=== PATIENT | male | born 1950 | race Caucasian/White ===

== ENCOUNTER 2019-04-08 05:38 | Outpatient (CLI) | payer MEDICARE ==
[~2019-04-08] VITALS: Ht 182.9 cm; Wt 111.4 kg
[~2019-04-08 05:38] MED LIST: SIMV10TA3 PO
[2019-04-08] MEDS ORDERED: SIMV80TA21 PO (10:11)
[2019-04-08] MEDS ORDERED: LISI10TA2 PO (10:11)
== END 2019-04-08 10:12 | disposition home or self-care (01) ==
LOC: PREOP 05:38
PROVIDERS: ATTEND Specialist
DX: Z01.818 Encounter for other preprocedural examination (principal)

== ENCOUNTER 2019-04-10 06:26 | Day surgery (SDC) | payer MEDICARE ==
[~2019-04-10] VITALS: Ht 182.9 cm; Wt 111.4 kg
[~2019-04-10 06:26] MED LIST changes: +LISI10TA2 PO; +SIMV80TA21 PO
[2019-04-10 06:30] VITALS: BP 129/89
[2019-04-10] MEDS: TETRACAINE 0.5% OPHTH SOLN 4 ML BTL (SINGLE DOSE ONLY) OU PRN ×4 (06:44→07:08)
[2019-04-10] MEDS ORDERED: POVIDONE (BETADINE) OPHTH SOLN 5% 30 ML OP ONE (06:45)
[2019-04-10] MEDS ORDERED: TIMOLOL MALEATE 0.5% 5 ML (TIMOPTIC) BTL OU PRN (06:45)
[2019-04-10] MEDS ORDERED: LIDOCAINE PF 1% 2 ML AMP IR PRN (06:45)
[2019-04-10] MEDS ORDERED: MOXIFLOXACIN OPHTH SOLN 5 MG/ML 0.3 ML SYRINGE OP ONE (06:45)
[2019-04-10] MEDS: CYCLOPENTOLATE 1% (CYCLOGYL) 2 ML DROPS OP SCH ×3 (06:53→07:08)
[2019-04-10] MEDS: PHENYLEPHRINE 10% OPHTH (NEO-SYN) 5 ML BTL OU SCH ×3 (06:53→07:08)
--- NOTE | 2019-04-10 07:27 | Ophthalmologist Pre-Op Note ---
Pre-Operative Progress Note H&P Reviewed The H&P was reviewed, patient examined and no changes noted. Date H&P Reviewed: Apr 10, 2019 Time H&P Reviewed: 07:27 Pre-Op Dx Cataract, Right Eye CHRISTINA CHAN MD Apr 10, 2019 07:27 POS
[2019-04-10] MEDS ORDERED: MIDAZOLAM 2 MG/2 ML (VERSED) VIAL ONE (07:46)
--- NOTE | 2019-04-10 07:50 | Ophthalmology Operative Report ---
Cataract removal/placement IOL PREOPERATIVE DIAGNOSIS: Cataract Right Eye POSTOPERATIVE DIAGNOSIS: Cataract Right Eye PROCEDURE: Cataract removal and placement of posterior chamber implant, right eye SURGEON: Tomás Chan ANESTHESIA: Topical with sedation COMPLICATIONS: None ESTIMATED BLOOD LOSS: Minimal DESCRIPTION OF PROCEDURE: After proper informed consent was obtained, the patient, a 68 male, was taken to the Operating Room and the right eye was anesthetized with tetracaine. The right eye was then prepped and draped in the usual manner. A wire lid speculum was placed. A paracentesis was made at the left hand position. Preservative free lidocaine was injected into the anterior chamber followed by viscoelastic. A clear corneal incision was made in the temporal position. A capsulorrhexis was preformed and the central nuclear and cortical material were removed. The posterior capsule was polished and Mayank 17.5 AU00T0 IOL was placed into the capsular bag. The residual viscoelastic was aspirated and balanced saline solution was injected into the anterior chamber. Moxifloxacin was injected into the anterior chamber. The wound was checked and found to be water tight. The patient tolerated the procedure well without complications. TOMÁS CHAN MD Apr 10, 2019 07:50 POS
[2019-04-10 08:00] VITALS: BP 118/83
[2019-04-10] MEDS ORDERED: acetaZOLAMIDE ER 500 MG CAP (DIAMOX SEQUELS) PO ONE (08:00)
--- NOTE | 2019-04-10 11:43 | Anesthesia-General Post-Op ---
MAC Patient Condition Mental Status/LOC: Same as Preop Cardiovascular: Satisfactory Nausea/Vomiting: Absent Respiratory: Satisfactory Pain: Controlled Complications: Absent Post Op Complications Complications None Follow Up Care/Instructions Patient Instructions None needed. Anesthesiology Discharge Order Discharge Order Patient is doing well, no complaints, stable vital signs, no apparent adverse anesthesia problems. No complications reported per nursing. ESTELA LYNN CRNA Apr 10, 2019 11:43 POS
== END 2019-04-10 08:00 | disposition home or self-care (01) ==
LOC: SDC 06:26
PROVIDERS: ATTEND Specialist
DX: H25.11 Age-related nuclear cataract, right eye (principal); I10 Essential (primary) hypertension; E78.5 Hyperlipidemia, unspecified; Z90.89 Acquired absence of other organs; Z79.899 Other long term (current) drug therapy; Z80.3 Family history of malignant neoplasm of breast; Z80.0 Family history of malignant neoplasm of digestive organs

== ENCOUNTER 2019-05-20 05:29 | Outpatient (CLI) | payer MEDICARE ==
[~2019-05-20] VITALS: Ht 182.9 cm; Wt 111.4 kg
== END 2019-05-20 11:10 | disposition home or self-care (01) ==
LOC: PREOP 05:29
PROVIDERS: ATTEND Specialist
DX: Z01.818 Encounter for other preprocedural examination (principal)

== ENCOUNTER 2019-05-22 09:51 | Day surgery (SDC) | payer MEDICARE ==
[~2019-05-22] VITALS: Ht 182.9 cm; Wt 111.4 kg
[2019-05-22 10:05] VITALS: BP 120/86
[2019-05-22] MEDS: TETRACAINE 0.5% OPHTH SOLN 4 ML BTL (SINGLE DOSE ONLY) OU PRN ×4 (10:13→10:52)
[2019-05-22] MEDS ORDERED: LIDOCAINE PF 1% 2 ML VIAL IR PRN (10:15)
[2019-05-22] MEDS ORDERED: POVIDONE (BETADINE) OPHTH SOLN 5% 30 ML OP ONE (10:15)
[2019-05-22] MEDS ORDERED: TIMOLOL MALEATE 0.5% 5 ML (TIMOPTIC) BTL OU PRN (10:15)
[2019-05-22] MEDS ORDERED: MOXIFLOXACIN OPHTH SOLN 5 MG/ML 0.3 ML SYRINGE OP ONE (10:15)
[2019-05-22] MEDS: CYCLOPENTOLATE 1% (CYCLOGYL) 2 ML DROPS OP SCH ×3 (10:31→10:52)
[2019-05-22] MEDS: PHENYLEPHRINE 10% OPHTH (NEO-SYN) 5 ML BTL OU SCH ×3 (10:32→10:52)
--- NOTE | 2019-05-22 11:15 | Ophthalmologist Pre-Op Note ---
Pre-Operative Progress Note H&P Reviewed The H&P was reviewed, patient examined and no changes noted. Date H&P Reviewed: May 22, 2019 Time H&P Reviewed: 11:15 Pre-Op Dx Cataract, Left Eye CHRISTINA CHAN MD May 22, 2019 11:15
[2019-05-22] MEDS ORDERED: MIDAZOLAM 2 MG/2 ML (VERSED) VIAL ONE (11:16)
--- NOTE | 2019-05-22 11:44 | Ophthalmology Operative Report ---
Cataract removal/placement IOL PREOPERATIVE DIAGNOSIS: Cataract Left Eye POSTOPERATIVE DIAGNOSIS: Cataract Left Eye PROCEDURE: Cataract removal and placement of posterior chamber implant, left eye SURGEON: Tomás Chan ANESTHESIA: Topical with sedation COMPLICATIONS: None ESTIMATED BLOOD LOSS: Minimal DESCRIPTION OF PROCEDURE: After proper informed consent was obtained, the patient, a 68 male, was taken to the Operating Room and the left eye was anesthetized with tetracaine. The left eye was then prepped and draped in the usual manner. A wire lid speculum was placed. A paracentesis was made at the left hand position. Preservative free lidocaine was injected into the anterior chamber followed by viscoelastic. A clear corneal incision was made in the temporal position. A capsulorrhexis was preformed and the central nuclear and cortical material were removed. The posterior capsule was polished and an Mayank 18.5 AU00T0 was placed into the capsular bag. The residual viscoelastic was aspirated and balanced saline solution was injected into the anterior chamber. Moxifloxacin was injected into the anterior chamber. The wound was checked and found to be water tight. The patient tolerated the procedure well without complications. TOMÁS CHAN MD May 22, 2019 11:44
[2019-05-22 11:53] VITALS: BP 115/79
[2019-05-22] MEDS ORDERED: acetaZOLAMIDE ER 500 MG CAP (DIAMOX SEQUELS) PO ONE (12:00)
--- NOTE | 2019-05-22 15:13 | Anesthesia-General Post-Op ---
MAC Patient Condition Mental Status/LOC: Same as Preop Cardiovascular: Satisfactory Nausea/Vomiting: Absent Respiratory: Satisfactory Pain: Controlled Complications: Absent Post Op Complications Complications None Follow Up Care/Instructions Patient Instructions None needed. Anesthesiology Discharge Order Discharge Order Patient is doing well, no complaints, stable vital signs, no apparent adverse anesthesia problems. No complications reported per nursing. ISIS NOVAK CRNA May 22, 2019 15:12
== END 2019-05-22 11:53 | disposition home or self-care (01) ==
LOC: SDC 09:51
PROVIDERS: ATTEND Specialist
DX: H25.12 Age-related nuclear cataract, left eye (principal); I10 Essential (primary) hypertension; E78.5 Hyperlipidemia, unspecified; Z79.899 Other long term (current) drug therapy; Z90.89 Acquired absence of other organs; Z80.0 Family history of malignant neoplasm of digestive organs; Z80.3 Family history of malignant neoplasm of breast

== ENCOUNTER 2019-12-18 05:52 | Outpatient (RCR) | payer MEDICARE ==
[~2019-12-18] VITALS: Ht 182.9 cm; Wt 109.1 kg
== END 2019-12-18 12:06 | disposition home or self-care (01) ==
LOC: PREOP 05:52
PROVIDERS: ATTEND Internal Medicine
DX: Z01.818 Encounter for other preprocedural examination (principal)

== ENCOUNTER 2019-12-25 07:03 | Day surgery (SDC) | payer MEDICARE ==
--- NOTE | 2019-12-04 08:23 | HISTORY AND PHYSICAL ---
DATE OF SERVICE: 12/25/2019 HISTORY OF PRESENT ILLNESS: The patient is a 69-year-old white male I have seen for followup of hypertension and hyperlipidemia. He has a past history of colon polyps and also family history of colon cancer, father being the index case diagnosed at the age of 66. He is due for screening colon as well. He reports he has been feeling well. He has been playing golf on a regular basis, portion controlling and that is what he attributes weight loss was due to down 6 pounds from 6 months ago. He has had no chest discomfort, orthopnea, PND or pedal edema. He denies dyspnea on exertion, has had no bowel habit change, denying melena or bright red blood per rectum. PHYSICAL EXAMINATION: GENERAL: Revealed a white male, appeared to be in no acute distress. VITAL SIGNS: Weight 244 pounds, blood pressure 110/74. CHEST: Clear. CARDIOVASCULAR: Regular rate and rhythm without murmur, S3 or S4. ABDOMEN: Soft, supple without mass, organomegaly or tenderness. EXTREMITIES: Reveal no cyanosis, clubbing or edema. SKIN: Evaluation revealed no suspicious nevi. LABORATORY DATA: Blood tests were reviewed with the patient. Lipid panel was ideal with total cholesterol of 131, HDL 46, triglyceride level of 85 and LDL 68. Fasting sugar was mildly elevated at 110. The remainder of his basic metabolic panel is normal. ASSESSMENT AND PLAN: 1. The patient is set up for screening colonoscopy on 12/25/2019 with a family history for colon cancer, index case being his father diagnosed at age 66. 2. Hypertension, under good control. 3. Hyperlipidemia, under good control. 4. Insulin resistance. Discussed the importance of continued portion control and weight loss to reduce future risk for diabetes. We will see him back in 6 months. Job ID: [id number] DocumentID: [id number] Dictated Date: 11/25/2019 16:59:27 Technician Date: 11/25/2019 17:24:32 Dictated By: SUKHWINDER PERALES MD MTDCholo
[~2019-12-25] VITALS: Ht 182.9 cm; Wt 109.1 kg
[2019-12-25] VITALS (10 sets, daily range): BP systolic 112–159; BP diastolic 75–117
[2019-12-25] MEDS ORDERED: D5 LR IV SOLUTION 1,000 ML IV ONE (07:12)
[2019-12-25] MEDS ORDERED: D5 LR IV SOLUTION 1,000 ML IV STA (07:15)
[2019-12-25] MEDS ORDERED: MIDAZOLAM 5 MG/5 ML (VERSED) VIAL IV PRN (07:15)
[2019-12-25] MEDS ORDERED: fentaNYL INJECTION 100 MCG/2 ML AMP IVP ONE (07:15)
[2019-12-25] MEDS ORDERED: LIDOCAINE JELLY 2% 6 ML SYRINGE MM PRN (07:15)
[2019-12-25] MEDS ORDERED: MIDAZOLAM 5 MG/5 ML (VERSED) VIAL ONE (07:35)
[2019-12-25] MEDS ORDERED: fentaNYL INJECTION 100 MCG/2 ML AMP ONE (07:35)
[2019-12-25] MEDS ORDERED: LIDOCAINE JELLY 2% 6 ML SYRINGE ONE (07:35)
--- NOTE | 2019-12-25 09:34 | Pre-Op Note & Conscious Sedat ---
Pre-Operative Progress Note H&P Reviewed The H&P was reviewed, patient examined and no changes noted. Date H&P Reviewed: Dec 25, 2019 Time H&P Reviewed: 07:40 Conscious Sedation Pre-Proced ASA Score 2 For ASA 3 and 4: Consider anesthesia and medical clearance. Also, for patients with a history of failed moderate sedation consider anesthesia. Airway Lungs Heart ASA score ASA 1: a normal healthy patient ASA 2: a patient with a mild systemic disease (mid diabetes, controlled hypertension, obesity ASA 3: a patient with a severe systemic disease that limits activity (angina, COPD, prior Myocardial infarction) ASA 4: a patient with an incapacitating disease that is a constant threat to life (CHF, renal failure) ASA 5: a moribund patient not expected to survive 24 hrs. (ruptured aneurysm) ASA 6: a declared brain- patient whose organs are being harvested. For emergent operations, add the letter E after the classification Mallampati Classification Grade 2 Sedation Plan Analgesia, Amnesia, Plan communicated to team members, Discussed options with patient/fam, Discussed risks with patient/fam The patient is an appropriate candidate to undergo the planned procedure, sedation, and anesthesia. The patient immediately re-assessed prior to indication. SUKHWINDER PERALES MD Dec 25, 2019 09:34
--- NOTE | 2019-12-25 17:01 | OPERATIVE REPORT ---
DATE OF SERVICE: COLONOSCOPY SUMMARY INDICATION FOR THE PROCEDURE: Screening colonoscopy and family history for colon cancer. DESCRIPTION OF PROCEDURE: The patient was placed in the left lateral decubitus position. Prior to undergoing colonoscopy, a digital rectal evaluation was performed. Anal sphincter tone was normal and the perianal reflex was intact. Prostate is mild to moderately enlarged, anodular and nontender to digital inspection. No other abnormalities were noted on digital inspection of the anal canal or distal rectal vault. The colonoscope was then inserted into the rectum and then under direct visualization advanced to the cecum. The cecum was identified by identification of the ileocecal valve and cecal strap. Photographic documentation was obtained. Careful inspection was made as the colonoscope was withdrawn. The quality of prep was good. FINDINGS: There was no evidence for internal or external hemorrhoids and the rectum was unremarkable. Present in the mid and proximal sigmoid colon were moderate number of medium to large size diverticulum without evidence for diverticulitis. No other sigmoid or descending colonic abnormalities were appreciated. The splenic flexure was unremarkable. Several small diverticulum were noted in the transverse colon. In the proximal transverse colon was a diminutive polyp that was photographed and biopsied and ablated and submitted for histopathology. A small questionable polyp was also noted in the proximal sigmoid colon. It too was biopsied and ablated with no subsequent blood loss. Several ascending colonic diverticulum and cecal diverticulum were noted without evidence for diverticulitis. No other right-sided colonic abnormalities were appreciated. ASSESSMENT: Two diminutive polyps were removed today, one from the proximal sigmoid colon and the other from the proximal transverse colon. As long as there are no surprises on histopathology report considering family history, we will advocate repeat surveillance colonoscopy in 5 years. Moderate diverticular disease noted in the mid and proximal sigmoid colon and to a lesser extent transverse colon, ascending colon and cecum were noted without evidence for diverticulitis. Digital evaluation of the prostate was compatible with mild to moderate BPH. Job ID: [id number] DocumentID: [id number] Dictated Date: 12/25/2019 09:55:15 Collections Manager Date: 12/25/2019 17:01:15 Dictated By: SUKHWINDER PERALES MD
== END 2019-12-25 09:10 | disposition home or self-care (01) ==
LOC: ENDO 07:03
PROVIDERS: ATTEND Internal Medicine
DX: Z12.11 Encounter for screening for malignant neoplasm of colon (principal); D12.3 Benign neoplasm of transverse colon; D12.5 Benign neoplasm of sigmoid colon; K57.30 Diverticulosis of large intestine without perforation or abscess without bleeding; N40.0 Benign prostatic hyperplasia without lower urinary tract symptoms; I10 Essential (primary) hypertension; E78.5 Hyperlipidemia, unspecified; E88.81 Metabolic syndrome and other insulin resistance; Z80.0 Family history of malignant neoplasm of digestive organs; Z86.010 Personal history of colon polyps

== ENCOUNTER → 2022-10-08 | Outpatient (CLI) | payer MEDICARE ==
[~2022-10-08] MED LIST changes: -LISI10TA2 PO; +LISI10TA25 PO
== END ==
LOC: CARD 11:16
PROVIDERS: ATTEND Nurse Practitioner Family
DX: I49.9 Cardiac arrhythmia, unspecified (principal); R00.2 Palpitations
CPT/HCPCS: 93005

== ENCOUNTER 2022-10-16 11:44 | Emergency (ER) | payer MEDICARE ==
[~2022-10-16] VITALS: Ht 182.8 cm; Wt 111.5 kg
[~2022-10-16 11:44] MED LIST changes: -DILT120C82 PO
[2022-10-16 12:11] LABS: BASOPHILS % (AUTO) 1 % (0-10); EOSINOPHILS # (AUTO) 0.3 10^3/uL (0.0-0.3); EOSINOPHILS % (AUTO) 3 % (0-10); HEMATOCRIT 48 % (40-54); HEMOGLOBIN 16.1 g/dL (13.3-17.7); LYMPHOCYTES # (AUTO) 1.3 10^3/uL (1.0-4.0); LYMPHOCYTES % (AUTO) 17 % (12-44); MEAN CORPUSCULAR HEMOGLOBIN 29 pg (25-34); MEAN CORPUSCULAR HGB CONC 33 g/dL (32-36); MEAN CORPUSCULAR VOLUME 88 fL (80-99); MEAN PLATELET VOLUME 9.7 fL (9.0-12.2); MONOCYTES # (AUTO) 0.8 10^3/uL (0.0-1.0); MONOCYTES % (AUTO) 11 % (0-12); NEUTROPHILS # (AUTO) 5.1 10^3/uL (1.8-7.8); NEUTROPHILS % (AUTO) 67 % (42-75); PLATELET COUNT 321 10^3/uL (130-400); WHITE BLOOD COUNT 7.5 10^3/uL (4.3-11.0)
[2022-10-16 12:14] LABS: ALBUMIN 4.3 GM/DL (3.2-4.5); POTASSIUM 4.5 MMOL/L (3.6-5.0)
--- NOTE | 2022-10-16 12:14 | ED Cardiac General ---
History of Present Illness General Chief Complaint: Cardiac/General Problems Stated Complaint: AFIB W/ RVR | 115-145 Nursing Triage Note: PT AMB TO RM 5 FROM ECHO WITH C/O AFIB WITH RVR. PT DENIES CP OR ANY OTHER SX Source: patient Exam Limitations: no limitations History of Present Illness Date Seen by Provider: Oct 16, 2022 Time Seen by Provider: 11:49 Initial Comments 72-year-old male presents to the ER for A-fib. He reports that approximately 1 month ago he started noticing that his heart rate was elevated when he was checking his blood pressure. He states that occasionally he has palpitations at night. He states that he saw his primary last week who ordered an EKG which showed him to be in atrial fibrillation. He was started on Eliquis and Plavix, states he has been taking these for about 4 days. His primary ordered an echo due to his atrial fibrillation, he was getting the echo today, they sent him here due to him being in A-fib with an elevated heart rate. He denies any current palpitations, dizziness, chest pain, shortness of air. Other past medical history includes hypertension and hyperlipidemia. 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 Allergies and Home Medications Allergies Coded Allergies: No Known Drug Allergies (Unverified , 09/14/14) Patient Home Medication List Home Medication List Reviewed: Yes Diltiazem HCl (Cardizem Cd) 120 Mg Cap.er.24h, 120 MG PO DAILY Prescribed by: Shira Ivan on 10/16/22 1304 Lisinopril (Lisinopril) 10 Mg Tablet, 10 MG PO HS, (Reported) Entered as Reported by: CHRISSY GERMAN on 04/08/19 1011 Simvastatin (Simvastatin) 80 Mg Tablet, 80 MG PO HS, (Reported) Entered as Reported by: CHRISSY GERMAN on 04/08/19 1011 Review of Systems Review of Systems Constitutional: see HPI Past Wyegawl-Ogyrqv-Iqdxww Hx Patient Social History Tobacco Use?: No Substance use?: No Alcohol Use?: Yes Alcohol type: Beer Pt feels they are or have been: No Seasonal Allergies Seasonal Allergies: Yes Past Medical History Surgery/Hospitalization HX: HLD, AFIB Surgeries: Yes Tonsillectomy Respiratory: No Cardiac: Yes High Cholesterol, Hypertension Neurological: No Genitourinary: No Gastrointestinal: No Musculoskeletal: No Endocrine: No HEENT: No Cancer: No Psychosocial: No Integumentary: No Blood Disorders: No Family Medical History FH: colon cancer Physical Exam Vital Signs Vital Signs - First Documented 10/16/22 11:50 Temp 36.4 Pulse 113 Resp 13 B/P (MAP) 138/107 (117) Pulse Ox 95 O2 Delivery Room Air Capillary Refill : Less Than 3 Seconds Height, Weight, BMI Height: 6'1.00" Weight: 245lbs. oz. 111.820821sr; 33.00 BMI Method: General Appearance: No Apparent Distress, WD/WN Neck: Normal Inspection, Supple Respiratory: Lungs Clear, Normal Breath Sounds, No Accessory Muscle Use, No Respiratory Distress Cardiovascular: Irregularly Irregular Extremity: Normal Inspection, Normal Range of Motion Neurologic/Psychiatric: Alert, Normal Mood/Affect Skin: Normal Color, Warm/Dry Progress/Results/Core Measures Results/Orders Lab Results Laboratory Tests Test 10/16/22 11:55 Range/Units White Blood Count 7.5 4.3-11.0 10^3/uL Red Blood Count 5.47 4.30-5.52 10^6/uL Hemoglobin 16.1 13.3-17.7 g/dL Hematocrit 48 40-54 % Mean Corpuscular Volume 88 80-99 fL Mean Corpuscular Hemoglobin 29 25-34 pg Mean Corpuscular Hemoglobin Concent 33 32-36 g/dL Red Cell Distribution Width 13.3 10.0-14.5 % Platelet Count 321 130-400 10^3/uL Mean Platelet Volume 9.7 9.0-12.2 fL Immature Granulocyte % (Auto) 1 % Neutrophils (%) (Auto) 67 42-75 % Lymphocytes (%) (Auto) 17 12-44 % Monocytes (%) (Auto) 11 0-12 % Eosinophils (%) (Auto) 3 0-10 % Basophils (%) (Auto) 1 0-10 % Neutrophils # (Auto) 5.1 1.8-7.8 10^3/uL Lymphocytes # (Auto) 1.3 1.0-4.0 10^3/uL Monocytes # (Auto) 0.8 0.0-1.0 10^3/uL Eosinophils # (Auto) 0.3 0.0-0.3 10^3/uL Basophils # (Auto) 0.0 0.0-0.1 10^3/uL Immature Granulocyte # (Auto) 0.0 0.0-0.1 10^3/uL Prothrombin Time 14.5 12.2-14.7 SEC INR Comment 1.1 0.8-1.4 Activated Partial Thromboplast Time 31 24-35 SEC Sodium Level 139 135-145 MMOL/L Potassium Level 4.5 3.6-5.0 MMOL/L Chloride Level 107 98-107 MMOL/L Carbon Dioxide Level 24 21-32 MMOL/L Anion Gap 8 5-14 MMOL/L Blood Urea Nitrogen 16 7-18 MG/DL Creatinine 1.01 0.60-1.30 MG/DL Estimat Glomerular Filtration Rate 79 BUN/Creatinine Ratio 16 Glucose Level 127 H 70-105 MG/DL Calcium Level 9.8 8.5-10.1 MG/DL Corrected Calcium 9.6 8.5-10.1 MG/DL Magnesium Level 2.3 1.6-2.4 MG/DL Total Bilirubin 0.9 0.1-1.0 MG/DL Aspartate Amino Transf (AST/SGOT) 21 5-34 U/L Alanine Aminotransferase (ALT/SGPT) 34 0-55 U/L Alkaline Phosphatase 56 40-136 U/L Total Protein 6.9 6.4-8.2 GM/DL Albumin 4.3 3.2-4.5 GM/DL My Orders Orders - SHIRA IVAN APRN Ekg Tracing (10/16/22 11:49) Cbc With Automated Diff (10/16/22 12:03) Magnesium (10/16/22 12:03) Comprehensive Metabolic Panel (10/16/22 12:03) Protime With Inr (10/16/22 12:03) Partial Thromboplastin Time (10/16/22 12:03) O2 (10/16/22 12:03) Monitor-Rhythm Ecg Trace Only (10/16/22 12:03) Ed Iv/Invasive Line Start (10/16/22 12:03) Diltiazem Cd 24 Hr Capsule (Cardizem Cd (10/16/22 12:45) Medications Given in ED Current Medications Medications Dose Ordered Sig/Gem Route Start Time Stop Time Status Last Admin Dose Admin Diltiazem HCl 120 mg ONCE ONCE PO 10/16/22 12:45 10/16/22 12:46 DC 10/16/22 12:56 120 MG Vital Signs/I&O 10/16/22 10/16/22 11:50 13:15 Temp 36.4 36.4 Pulse 113 115 Resp 13 15 B/P (MAP) 138/107 (117) 122/94 Pulse Ox 95 96 O2 Delivery Room Air Room Air Blood Pressure Mean: 117 Progress Progress Note : Progress Note Patient seen and evaluated, resting comfortably in bed, no acute distress. Exam and symptoms, work-up initiated including CBC, CMP, magnesium, coags. 1231 Labs reviewed. CBC grossly normal. CMP grossly normal, glucose 127. Coags normal. Called and spoke with Dr. De La Rosa, cardiology. I informed him that I believe patient will be stable to go home, heart rate has remained mostly around 100. Occasionally jumps to 134, but only for a second. The range mostly stays between [address] De La Rosa is okay with patient going home as well. He would like patient started on Cardizem CD1 120 mg once daily. He wants patient to follow-up in the office. Results discussed with patient. Patient agreeable to discharge plan. Discharge instructions and return precautions provided. Initial ECG Impression Date: Oct 16, 2022 Initial ECG Impression Time: 11:52 Initial ECG Rate: 103 Initial ECG Rhythm: A Fib/Flutter Initial ECG Intervals: Normal Initial ECG Impression: Atrial Fibrillation Initial ECG Comparisson: Unchanged Departure Impression Primary Impression: Atrial fibrillation Qualified Codes: I48.11 - Longstanding persistent atrial fibrillation Disposition: 01 HOME, SELF-CARE Condition: Stable Departure-Patient Inst. Decision time for Depature: 13:02 Referrals: SUKHWINDER PERALES MD (PCP/Family) Primary Care Physician AMILCAR DE LA ROSA MD Patient Instructions: Atrial Fibrillation (DC) Add. Discharge Instructions: Take Cardizem 1 tablet daily as prescribed. Continue taking your home medications. Call Dr. De La Rosa's office today to schedule a follow-up appointment. Return for chest pain, shortness of air, dizziness, or any other new, concerning, or worsening symptoms. All discharge instructions reviewed with patient and/or family. Voiced u nderstanding. Scripts Diltiazem HCl (Cardizem Cd) 120 Mg Cap.er.24h 120 MG PO DAILY for 30 Days, #30 CAP 0 Refills Prov: SHIRA IVAN LUIS A 10/16/22 SHIRA IVAN APRN Oct 16, 2022 12:14
[2022-10-16 12:15] LABS: CALCIUM 9.8 MG/DL (8.5-10.1); INR 1.1 (0.8-1.4); PROTHROMBIN TIME PATIENT 14.5 SEC (12.2-14.7)
[2022-10-16 12:16] LABS: TOTAL PROTEIN 6.9 GM/DL (6.4-8.2)
[2022-10-16 12:18] LABS: BILIRUBIN,TOTAL 0.9 MG/DL (0.1-1.0)
[2022-10-16 12:20] LABS: CREATININE SERUM 1.01 MG/DL (0.60-1.30)
[2022-10-16 12:23] LABS: MAGNESIUM 2.3 MG/DL (1.6-2.4)
[2022-10-16] MEDS ORDERED: dilTIAZem120 MG (CARDIZEM CD) CAP PO ONE (12:45)
[2022-10-16] MEDS ORDERED: DILT120C82 PO (13:04)
[2022-10-16 13:15] VITALS: BP 122/94
== END 2022-10-16 13:15 | disposition home or self-care (01) ==
LOC: EDUNIT# 11:44 → ER 11:45
DX: I48.91 Unspecified atrial fibrillation (principal); Z79.02 Long term (current) use of antithrombotics/antiplatelets
CPT/HCPCS: 36415; 80053; 83735; 85025; 85610; 85730; 93005; 93041

== ENCOUNTER → 2022-10-16 | Outpatient (CLI) | payer MEDICARE ==
[~2022-10-16] MED LIST changes: +DILT120C82 PO
== END ==
LOC: CARD 10:55
PROVIDERS: ATTEND Nurse Practitioner Family
DX: I48.91 Unspecified atrial fibrillation (principal)

== ENCOUNTER → 2022-10-26 | Outpatient (CLI) | payer MEDICARE ==
[~2022-10-26] MED LIST changes: +DILT120C82 PO
== END ==
LOC: CARD 12:00
PROVIDERS: ATTEND Internal Medicine Cardiovascular Disease
DX: I10 Essential (primary) hypertension (principal); I25.10 Atherosclerotic heart disease of native coronary artery without angina pectoris
CPT/HCPCS: 93306

== ENCOUNTER → 2022-12-26 | Outpatient (CLI) | payer MEDICARE ==
[~2022-12-26] MED LIST changes: +CATHETER FLUSH 10 ML SYR IVP PRN
== END ==
LOC: CARD 12:30
PROVIDERS: ATTEND Internal Medicine Cardiovascular Disease
DX: I10 Essential (primary) hypertension (principal); I25.10 Atherosclerotic heart disease of native coronary artery without angina pectoris

== ENCOUNTER → 2023-01-02 | Outpatient (CLI) | payer MEDICARE ==
[~2023-01-02] VITALS: Ht 182 cm; Wt 111.0 kg
[~2023-01-02] MED LIST changes: +REGADENOSON 0.4 MG/5 ML SYR IV ONE; +meTOprolol INJECTION 5 MG/5 ML VIAL IV ONE; +meTOprolol INJECTION 5 MG/5 ML VIAL ONE
[2023-01-02 13:36] VITALS: BP 141/101
[2023-01-02 13:38] VITALS: BP 135/98
--- NOTE | 2023-01-02 15:50 | Cardiology Stress Test Report ---
Stress Test Report Date of Procedure/Referring: Date of Procedure: Jan 02, 2023 PCP Sukhwinder Perales MD Admitting Physician Admitting Physician: Attending Physician: Tasha De La Rosa MD Indications: atrial fib Baseline Heart Rate: 95 Baseline Blood Pressure: Blood Pressure Systolic: 135 Blood Pressure Diastolic: 98 Baseline Vitals Vital Signs Date Time Temp Pulse Resp B/P (MAP) Pulse Ox O2 Delivery O2 Flow Rate FiO2 01/02/23 13:36 90 17 141/101 (114) 98 Baseline EKG: Baseline EKG: a fib Summary After explaining the procedure to the patient, he signed a consent and then brought to the stress nuclear laboratory. Patient received 0.4 mg Lexiscan for stress test, ECG, heart rate and blood pressure were monitored continuously. Resting and stress dose of radio tracer were injected, imaging was acquired and reviewed in short axis, horizontal long axis and vertical long axis views. TID: 1.15 SSS: 4 SDS: 4 EF: 61 Patient tolerated Lexiscan well Baseline atrial fibrillation persisted during test Diaphragmatic attenuation with mild decrease uptake involving the inferior apical segment with mild reversibility most probably secondary to diaphragmatic attenuation, overall there is no significant ischemia or infarction noted on SPECT images Normal left ventricular size, ejection fraction 61%, gated images are unreliable due to underlying atrial fibrillation Copy Copies To 1: SUKHWINDER PERALES MD, BASHAR J MD Jan 02, 2023 15:50
== END ==
LOC: CARD 12:45
PROVIDERS: ATTEND Internal Medicine Cardiovascular Disease
DX: I10 Essential (primary) hypertension (principal); I25.10 Atherosclerotic heart disease of native coronary artery without angina pectoris
CPT/HCPCS: 78452; 93017; A9502

== ENCOUNTER 2023-01-16 07:17 | Day surgery (SDC) | payer MEDICARE ==
[2023-01-16] VITALS (7 sets, daily range): BP systolic 117–136; BP diastolic 76–106
[~2023-01-16] VITALS: Ht 182.9 cm; Wt 115.4 kg
[~2023-01-16 07:17] MED LIST changes: -CATHETER FLUSH 10 ML SYR IVP PRN; -REGADENOSON 0.4 MG/5 ML SYR IV ONE; -meTOprolol INJECTION 5 MG/5 ML VIAL IV ONE; -meTOprolol INJECTION 5 MG/5 ML VIAL ONE
[2023-01-16] MEDS ORDERED: NS IV 1000 ML 1,000 ML IV SCH (07:30)
--- NOTE | 2023-01-16 07:53 | Diagnostic Imaging Report ---
INDICATION: Atrial fibrillation, assessment prior to cardioversion TECHNIQUE: Single view chest 7:31 AM CORRELATION STUDY: None FINDINGS: Heart size and mediastinum are enlarged and prominent. Vasculature within normal limits. Mildly elevated right diaphragm. Lungs are otherwise clear. Probable calcified granuloma left lung base laterally. IMPRESSION: 1. Cardiac enlargement without failure. Dictated by: Dictated on workstation # [id number]
[2023-01-16 07:54] LABS: HEMATOCRIT 45 % (40-54); MEAN CORPUSCULAR HEMOGLOBIN 30 pg (25-34); MEAN CORPUSCULAR HGB CONC 33 g/dL (32-36); MEAN CORPUSCULAR VOLUME 89 fL (80-99); MEAN PLATELET VOLUME 10.2 fL (9.0-12.2); PLATELET COUNT 256 10^3/uL (130-400); WHITE BLOOD COUNT 5.8 10^3/uL (4.3-11.0)
[2023-01-16] MEDS ORDERED: LISI20TA26 PO (08:03)
[2023-01-16] MEDS ORDERED: DILT240C90 PO (08:03)
[2023-01-16] MEDS ORDERED: ACET325T38 PO (08:03)
[2023-01-16] MEDS ORDERED: SIMV80TA21 PO (08:03)
[2023-01-16] MEDS ORDERED: LORA10TA76 PO (08:03)
[2023-01-16] MEDS ORDERED: FLEC50TA PO (08:03)
[2023-01-16] MEDS ORDERED: METO-333 PO (08:03)
[2023-01-16] MEDS ORDERED: APIX5TAB PO (08:03)
[2023-01-16 08:05] LABS: INR 1.2 (0.8-1.4); PROTHROMBIN TIME PATIENT 15.4 SEC (12.2-14.7)
--- NOTE | 2023-01-16 08:15 | Cardiac Procedure Note-CS/ASA ---
Pre-Procedure Note Pre-Op Procedure Note Date of Available H&P: Jan 03, 2023 Date H&P Reviewed: Jan 16, 2023 Time H&P Reviewed: 08:14 History & Physical: H&P Reviewed, Patient Examed, No changes noted Pre-Operative Diagnosis: a fib Moderate Sedation PreProcedure Time 08:15 ASA Score 3 Airway Lungs Heart ASA score ASA 1: a normal healthy patient ASA 2: a patient with a mild systemic disease (mid diabetes, controlled hypertension, obesity ASA 3: a patient with a severe systemic disease that limits activity (angina, COPD, prior Myocardial infarction) ASA 4: a patient with an incapacitating disease that is a constant threat to life (CHF, renal failure) ASA 5: a moribund patient not expected to survive 24 hrs. (ruptured aneurysm) ASA 6: a declared brain- patient whose organs are being harvested. For emergent operations, add the letter E after the classification Mallampati Classification Grade 3 Sedation Plan Analgesia, Amnesia, Plan communicated to team members, Discussed options with patient/fam, Discussed risks with patient/fam The patient is an appropriate candidate to undergo the planned procedure, sedation, and anesthesia. The patient immediately re-assessed prior to indication. AMILCAR VAZQUEZ MD Jan 16, 2023 08:15
[2023-01-16 08:18] LABS: ALBUMIN 4.2 GM/DL (3.2-4.5); CALCIUM 9.2 MG/DL (8.5-10.1); CREATININE SERUM 1.13 MG/DL (0.60-1.30); POTASSIUM 4.4 MMOL/L (3.6-5.0); TOTAL PROTEIN 6.5 GM/DL (6.4-8.2)
[2023-01-16] MEDS ORDERED: NS IV 1000 ML 1,000 ML ONE (08:21)
[2023-01-16] MEDS ORDERED: proPOfol INJECTION 200 MG/20 ML VIAL IV ONE (08:21)
[2023-01-16] MEDS ORDERED: MIDAZOLAM INJ 2 MG/2 ML VIAL ONE (08:21)
[2023-01-16] MEDS ORDERED: LIDOCAINE 2% VISCOUS 15 ML UDC ONE (08:30)
[2023-01-16] MEDS ORDERED: LIDOCAINE 2% VISCOUS 15 ML UDC PO ONE (08:54)
--- NOTE | 2023-01-16 09:17 | Discharge Inst-Post CATH ---
Discharge Inst-CATH/EP Problems Reviewed?: Yes Post Cardiac Cath/EP D/C Inst Follow Up/Plan Appointment with Dr. De La Rosa's office in 1 to 2 weeks <b>CARDIAC CATH/EP PROCEDURE DISCHARGE INSTRUCTIONS</b> ACTIVITY * Go Home directly and rest. * Limit activity of the leg (or wrist if it was used) for 7 days including aer obics, swimming, jogging, bicycling, etc. * Restrict stair-climbing for 7 days if possible, if not, climb up with your non-cath leg, then bring together on the same step. * Avoid lifting, pushing, pulling or excessive movement of the affected extremi ty for 7 days. * Customary sexual activity may be resumed after 2 days-use caution not to use a position that strains or causes pain to the affected extremity. * No driving for 24 hours. * NO SMOKING. * Avoid straining for bowel movements for 7 days. * Gentle walking on level ground is allowed. * Returning to work will depend on the type of procedure and the results. Your doctor will discuss this with you. CALL YOUR DOCTOR FOR ANY OF THE FOLLOWING: *If bleeding from the puncture site occurs- Apply gentle pressure to site with clean cloth and call your doctor or EMS. * If a knot or lump forms under the skin, increases in size, or causes pain. * If bruising appears to be worsening or moving further down your leg instead of disappearing. * Temperature above 101 F. CARE OF YOUR GROIN INCISION; * Bruising or purple discoloration of the skin near the puncture site is common. * You may shower only, no bathtub bathing for 5 days. Be careful to avoid slipping as your leg may feel stiff. * If a closure device was used on your femoral artery, please see the attached guide regarding care of the device and your leg. * Leave dressing on FOR 24 hours. CARE OF YOUR WRIST INCISION; * Bruising or purple discoloration of the skin near the puncture site is common. * You may shower. * DO NOT submerge wrist. * Leave dressing on FOR 24 hours. AMILCAR DE LA ROSA MD Jan 16, 2023 09:17
--- NOTE | 2023-01-16 09:22 | Anesthesia-General Post-Op ---
MAC Patient Condition Mental Status/LOC: Same as Preop Cardiovascular: Satisfactory Nausea/Vomiting: Absent Respiratory: Satisfactory Pain: Controlled Complications: Absent Post Op Complications Complications None Follow Up Care/Instructions Patient Instructions None needed. Anesthesiology Discharge Order Discharge Order Patient is doing well, no complaints, stable vital signs, no apparent adverse anesthesia problems. No complications reported per nursing. TIMO GARLAND CRNA Jan 16, 2023 09:22
--- NOTE | 2023-01-16 09:28 | Cardioversion ---
Cardioversion PROCEDURE PHYSICIAN: Amilcar De La Rosa DATE OF PROCEDURE: 01/16/23 DIRECT EXTERNAL ELECTRICAL CARDIOVERSION: Indications: Atrial Fibrillation with rapid ventricular rate Preoperative diagnoses: Atrial Fibrillation with rapid ventricular rate Postoperative diagnosis: Sinus rhythm, Successful Electrical Cardioversion History: 72-year-old gentleman with paroxysmal atrial fibrillation, he was started on flecainide, scheduled for cardioversion, patient reported that he skipped few days of oral anticoagulation while he was on a trip golfing. I decided to proceed with LOREN which was done and showing no clot or thrombus within the left atrium. Anesthesia: By Anesthesia services Complications: None Specimen: None Contrast: 0 Flouroscopy: none Procedure Details: The patient was brought the concrete mixing plant laborer after informed consent was taken, all the risks and complications were explained including the risk of stroke. Electrical cardioversion was carried out with anesthesia support with propofol. 120 joules of synchronized shock was delivered through external patches which promptly re stored sinus rhythm. The patient tolerated the procedure well. Conclusions: Successful electrical cardioversion terminating atrial fibrillation Final Diagnosis: Paroxysmal atrial fibrillation Palpitation Hypertension AMILCAR DE LA ROSA MD Jan 16, 2023 09:28
== END 2023-01-16 11:40 ==
LOC: CATH 07:17 → SDC 09:54 → CATH 11:40
PROVIDERS: ATTEND Internal Medicine Cardiovascular Disease
DX: I48.0 Paroxysmal atrial fibrillation (principal); I25.10 Atherosclerotic heart disease of native coronary artery without angina pectoris; I65.23 Occlusion and stenosis of bilateral carotid arteries; E78.2 Mixed hyperlipidemia; G47.33 Obstructive sleep apnea (adult) (pediatric); Z99.81 Dependence on supplemental oxygen; Z79.899 Other long term (current) drug therapy; Z79.01 Long term (current) use of anticoagulants
CPT/HCPCS: 36415; 71045; 80053; 80061; 85027; 85610; 85730; 87081; 92960; 93005; 93312

== ENCOUNTER 2023-02-26 19:13 | Emergency (ER) | payer MEDICARE ==
[~2023-02-26] VITALS: Ht 183 cm; Wt 113.4 kg
[~2023-02-26 19:13] MED LIST changes: +ACET325T38 PO; +APIX5TAB PO; +DILT240C90 PO; +FLEC50TA PO; +LISI20TA26 PO; +LORA10TA76 PO; +METO-333 PO
[2023-02-26 19:27] VITALS: BP_SYST 123; BP_SYST 125; BP_SYST 137; BP_DIAS 78; BP_DIAS 81; BP_DIAS 82
--- NOTE | 2023-02-26 19:34 | ED General ---
General Chief Complaint: Dizziness/Syncope Stated Complaint: LIGHTHEADED Nursing Triage Note: c/o feeling lightheaded approx. 1830. reports hr slow today. hx afib. no med changes. Source of Information: Patient Exam Limitations: No Limitations History of Present Illness Date Seen by Provider: Feb 26, 2023 Time Seen by Provider: 19:29 Initial Comments Patient is a 72-year-old male who presents to the emergency department with a chief complaint of feeling "lightheaded" prior to arrival in the emergency room. He was at a [employer] meeting here at the hospital, had been sitting for about 45 minutes and all of a sudden states that he felt like he needed to take "extra breaths". He denies feeling dizzy, room spinning, him moving. He states the symptoms lasted for about 10 minutes. He denies chest pain, recent fevers, chills. No GI or complaints. No headache, vision changes. He has a history of atrial fibrillation on metoprolol, diltiazem and anticoagulant therapy. He has an appointment with Dr. De La Rosa on . He states currently he is completely asymptomatic. He did check his pulse earlier today on his home pulse ox and his heart rate was in the upper 40s low 50s. As he has a history of the A-fib, he was concerned that this might be too low. Currently pulse is 49-51. Good blood pressure. Is not hypoxic. Timing/Duration: 1 Hour Severity: Mild Associated Systoms: Denies Symptoms Allergies and Home Medications Allergies Coded Allergies: No Known Drug Allergies (Unverified , 09/14/14) Patient Home Medication List Home Medication List Reviewed: Yes Acetaminophen (Tylenol) 325 Mg Tablet, 650 MG PO Q6H PRN for PAIN-MILD (1-4), ( Reported) Entered as Reported by: JOHAN CLEMONS on 01/16/23802 Last Action: Reviewed Apixaban (Eliquis) 5 Mg Tablet, 5 MG PO BID, (Reported) Entered as Reported by: JOHAN CLEMONS on 01/16/23802 Last Action: Reviewed Diltiazem HCl (Diltiazem 24Hr Cd) 240 Mg Cap.er.24h, 240 MG PO BID, (Reported) Entered as Reported by: JOHAN CLEMONS on 01/16/23802 Last Action: Reviewed Flecainide Acetate (Flecainide Acetate) 50 Mg Tablet, 50 MG PO BID, (Reported) Entered as Reported by: JOHAN CLEMONS on 01/16/23802 Last Action: Reviewed Lisinopril (Lisinopril) 20 Mg Tablet, 20 MG PO HS, (Reported) Entered as Reported by: JOHAN CLEMONS on 01/16/23802 Last Action: Reviewed Loratadine (Claritin) 10 Mg Tablet, 10 MG PO DAILY PRN for ALLERGIES, (Reported) Entered as Reported by: JOHAN CLEMONS on 01/16/23802 Last Action: Reviewed Metoprolol Tartrate (Metoprolol Tartrate) 25 Mg Tablet, 25 MG PO BID, (Reported) Entered as Reported by: JOHAN CLEMONS on 01/16/23802 Last Action: Reviewed Simvastatin (Simvastatin) 80 Mg Tablet, 80 MG PO HS, (Reported) Entered as Reported by: JOHAN CLEMONS on 01/16/23802 Last Action: Reviewed Review of Systems Review of Systems Constitutional: see HPI Respiratory: no symptoms reported Cardiovascular: no symptoms reported Gastrointestinal: no symptoms reported Musculoskeletal: no symptoms reported Past Ylodcfd-Hxnvjf-Xmhqln Hx Patient Social History Tobacco Use?: No Substance use?: No Alcohol Use?: No Pt feels they are or have been: No Seasonal Allergies Seasonal Allergies: Yes Past Medical History Surgery/Hospitalization HX: HLD, AFIB, colonoscopy Surgeries: Yes Tonsillectomy Respiratory: No Sleep Apnea Currently Using CPAP: Yes Cardiac: Yes Atrial Fibrillation, High Cholesterol, Hypertension Neurological: No Genitourinary: No Gastrointestinal: No Polyps Musculoskeletal: No Endocrine: No HEENT: No Cancer: No Psychosocial: No Integumentary: No Blood Disorders: No Family Medical History FH: colon cancer Physical Exam Vital Signs Vital Signs - First Documented 02/26/23 19:18 Temp 36.7 Pulse 51 Resp 16 B/P (MAP) 143/87 (105) Pulse Ox 95 O2 Delivery Room Air Capillary Refill : Less Than 3 Seconds Height, Weight, BMI Height: 6'1.00" Weight: 245lbs. oz. 111.107721tu; 33.00 BMI Method: General Appearance: No Apparent Distress, WD/WN Eyes: Bilateral Eye Normal Inspection Neck: Normal Inspection Respiratory: Lungs Clear, Normal Breath Sounds, No Accessory Muscle Use, No Respiratory Distress Cardiovascular: Regular Rate, Rhythm, Normal Peripheral Pulses, Bradycardia (50) Gastrointestinal: Non Tender, Soft Extremity: Normal Inspection, Normal Range of Motion, Non Tender, No Pedal Edema Neurologic/Psychiatric: Alert, Oriented x3, No Motor/Sensory Deficits, Normal Mood/Affect, housekeeper head II-XII Norm as Tested Skin: Normal Color, Warm/Dry Progress/Results/Core Measures Suspected Sepsis SIRS Temperature: Pulse: 51 Respiratory Rate: 16 Blood Pressure 143 /87 Mean: 105 Results/Orders Lab Results Laboratory Tests Test 02/26/23 19:42 Range/Units Glucometer 175 H 70-110 MG/DL My Orders Orders - DANY FRANCO MD Ekg Tracing (02/26/23 19:39) Accucheck Stat ONCE (02/26/23 19:39) Orthostatic Vital Signs (Adult (02/26/23 19:45) Vital Signs/I&O 02/26/23 02/26/23 02/26/23 19:18 19:27 20:03 Temp 36.7 Pulse 51 49 48 51 50 Resp 16 16 B/P (MAP) 143/87 (105) 125/82 (96) 115/83 123/81 (95) 137/78 (97) Pulse Ox 95 96 O2 Delivery Room Air Room Air Capillary Refill : Less Than 3 Seconds Blood Pressure Mean: 105 Progress Note : Time: 19:53 Progress Note Patient seen and evaluated by me. Evaluation today includes physical exam, orthostatic vital signs, Accu-Chek, EKG pertinent physical exam findings well- developed well-nourished 72-year-old male in no acute distress. Sinus bradycardia noted on telemetry. Heart is regular, lungs are clear. He has no lower extremity edema. Mentation is normal. Generally no obvious focal neurologic deficits. He is asymptomatic at presentation. Differential diagnosis includes symptomatic bradycardia, hypoglycemia Orthostatic vital signs were completely normal with no change in pulse or blood pressure on lying, sitting and standing. His EKG shows sinus bradycardia at 47 beats a minute with first-degree AV block, SC interval 236. Bedside blood sugar was 185. All of these findings are reassuring. He is certainly not hypoglycemic. I did compare his EKG from today to the most recent one in the system in January 2023. He was also a sinus bradycardia at that time. Patient tells me that he has a follow-up appointment with Dr. De La Rosa on of this week. Advised if further symptoms develop that he should return to the emergency room. Will need follow-up with his primary care physician regarding the slightly elevated blood sugar. Patient is comfortable with plan of care. All questions were sought and answered. Patient is stable for discharge ECG Initial ECG Impression Date: Feb 26, 2023 Initial ECG Impression Time: 19:45 Initial ECG Rate: 47 Initial ECG Rhythm: S.Khai Initial ECG Intervals SC 236 QRS 72 QTc 419 Initial ECG Impression: Sinus Bradycardia, 1st Degree AV Block Initial ECG Comparisson: Unchanged Departure Impression Primary Impression: Bradycardia Disposition: 01 HOME, SELF-CARE Condition: Stable Departure-Patient Inst. Decision time for Depature: 19:56 Referrals: SUKHWINDER HECTOR MD (PCP/Family) Primary Care Physician AMILCAR DE LA ROSA MD Patient Instructions: Bradycardia (DC) Add. Discharge Instructions: Please keep your follow-up appointment with Dr. De La Rosa on . You will also need to follow-up with Dr. Hector regarding your slightly elevated blood sugar this evening. If you develop any persistent feelings of lightheadedness or shortness of breath or dizziness please return to the emergency department for reevaluation Copy Copies To 1: SUKHWINDER HECTOR MD Copies To 2: AMILCAR DE LA ROSA MD, KATHRYN M MD Feb 26, 2023 19:34
[2023-02-26 20:03] VITALS: BP 115/83
== END 2023-02-26 20:05 | disposition home or self-care (01) ==
LOC: EDUNIT# 19:13 → ER 19:15
DX: R00.1 Bradycardia, unspecified (principal); I48.91 Unspecified atrial fibrillation; Z79.01 Long term (current) use of anticoagulants; Z79.899 Other long term (current) drug therapy
CPT/HCPCS: 82947; 93005; 93041

== ENCOUNTER 2023-03-15 10:12 | Outpatient (CLI) | payer MEDICARE ==
[~2023-03-15] VITALS: Ht 182.9 cm; Wt 113.4 kg
== END 2023-03-15 14:00 | disposition home or self-care (01) ==
LOC: PREOP 10:12
PROVIDERS: ATTEND Specialist
DX: Z01.818 Encounter for other preprocedural examination (principal)

== ENCOUNTER 2023-03-22 08:42 | Day surgery (SDC) | payer MEDICARE ==
[~2023-03-22] VITALS: Ht 182 cm; Wt 113.4 kg
[2023-03-22] MEDS ORDERED: TETRACAINE 0.5% OPHTH SOLN 5 ML BTL OU PRN (09:45)
[2023-03-22] MEDS ORDERED: PHENYLEPHRINE 10% OPHTH SOLN 5 ML BTL OU PRN (09:45)
[2023-03-22] MEDS ORDERED: TROPICAMIDE 1% OPH SOLN (MYDRIACYL) 15 ML BTL OU PRN (09:45)
[2023-03-22 09:50] VITALS: BP 176/87
--- NOTE | 2023-03-22 10:26 | Ophthalmologist Pre-Op Note ---
Pre-Operative Progress Note H&P Reviewed The H&P was reviewed, patient examined and no changes noted. Date H&P Reviewed: Mar 22, 2023 Time H&P Reviewed: 10:11 Pre-Op Dx Secondary Cataract, Bilateral Eyes CHRISTINA CHAN MD Mar 22, 2023 10:26
--- NOTE | 2023-03-22 10:44 | Ophthalmology Operative Report ---
YAG Capsulotomy PREOPERATIVE DIAGNOSIS: Secondary Cataract Bilateral POSTOPERATIVE DIAGNOSIS: Secondary Cataract Bilateral PROCEDURE: YAG Capsulotomy, Bilateral SURGEON: Tomás Chan ANESTHESIA: Topical anesthesia COMPLICATIONS: None ESTIMATED BLOOD LOSS: Minimal DESCRIPTION OF PROCEDURE: After proper informed consent was obtained, the patient's, a 72 male , received one drop of Tropicamide and one drop of Tetracaine in each eye. The patient was then placed at the YAG laser and using a power of [5.0 ] millijoules and bursts [21 ] right eye and [25] left eye were used to fashion a central capsulotomy. The patient tolerated the procedure well without complications. TOMÁS CHAN MD Mar 22, 2023 10:44
== END 2023-03-22 10:44 ==
LOC: SDC 08:42
PROVIDERS: ATTEND Specialist
DX: H26.493 Other secondary cataract, bilateral (principal)